=== PATIENT | female | born 1955 | race Two or more races ===

== ENCOUNTER 2020-04-13 07:24 | Outpatient (CLI) | payer OTHER | END 2020-04-13 07:37 | disposition home or self-care (01) | LOC: TOM 07:24 | PROVIDERS: ATTEND Surgery | DX: K57.90 Diverticulosis of intestine, part unspecified, without perforation or abscess without bleeding (principal); Z80.0 Family history of malignant neoplasm of digestive organs ==

== ENCOUNTER 2023-04-08 09:35 | Outpatient (CLI) | payer OTHER | END 2023-04-08 09:42 | disposition home or self-care (01) | LOC: RAD 09:35 | PROVIDERS: ATTEND Orthopaedic Surgery | DX: M25.561 Pain in right knee (principal); M25.562 Pain in left knee; S83.200A Bucket-handle tear of unspecified meniscus, current injury, right knee, initial encounter | CPT/HCPCS: 73721 ==